=== PATIENT | female | born 1975 | race Caucasian/White ===

== ENCOUNTER 2017-03-30 10:10 | Emergency (ER) | payer SELFPAY ==
[2017-03-30] MEDS ORDERED: HYDROCODONE/ACETAMINOPHEN 5-325 MG TABLET PO ONE (10:43)
--- NOTE | 2017-03-30 10:48 | ER Document Report ---
ED General - General Chief Complaint: Arm Pain Stated Complaint: FALL WRIST PAIN Time Seen by Provider: 03/30/17 10:42 Mode of Arrival: Ambulatory Information source: Patient Notes: 41 yr old female presents with complaints of left wrist injury after slipping on ice. pt denies any other injuries. pt is being seen at meth[facility]one clinic. TRAVEL OUTSIDE OF THE [place] IN LAST 30 DAYS: No - HPI Onset: Just prior to arrival Onset/Duration: Sudden Quality of pain: Sharp Severity: Moderate Pain Level: 2 Associated symptoms: Body/muscle aches Exacerbated by: Movement Relieved by: Denies Similar symptoms previously: No Recently seen / treated by doctor: No - Related Data Allergies/Adverse Reactions: No Known Allergies Allergy (Unverified 03/30/17 10:12) Past Medical History - Social History Smoking Status: Current Every Day Smoker Cigarette use (# per day): Yes Chew tobacco use (# tins/day): No Smoking Education Provided: No Family History: Reviewed & Not Pertinent Review of Systems - Review of Systems Notes: REVIEW OF SYSTEMS: CONSTITUTIONAL : Denies fever, chills, or sweats. Denies recent illness. EENT: Denies eye, ear, throat, or mouth pain or symptoms. Denies nasal or sinus congestion or discharge. Denies throat, tongue, or mouth swelling or difficulty swallowing. CARDIOVASCULAR: Denies chest pain. Denies palpitations or racing or irregular heart beat. Denies ankle edema. RESPIRATORY: Denies cough, cold, or chest congestion. Denies shortness of breath, difficulty breathing, or wheezing. GASTROINTESTINAL: Denies abdominal pain or distention. Denies nausea, vomiting , or diarrhea. Denies blood in vomitus, stools, or per rectum. Denies black, tarry stools. Denies constipation. GENITOURINARY: Denies difficulty urinating, painful urination, burning, frequency, blood in urine, or discharge. FEMALE GENITOURINARY: Denies vaginal bleeding, heavy or abnormal periods, irregular periods. Denies vaginal discharge or odor. MUSCULOSKELETAL: Left wrist pain SKIN: Denies rash, lesions or sores. HEMATOLOGIC : Denies easy bruising or bleeding. LYMPHATIC: Denies swollen, enlarged glands. NEUROLOGICAL: Denies confusion or altered mental status. Denies passing out or loss of consciousness. Denies dizziness or lightheadedness. Denies headache. Denies weakness or paralysis or loss of use of either side. Denies problems with gait or speech. Denies sensory loss, numbness, or tingling. Denies seizures. PSYCHIATRIC: Denies anxiety or stress. Denies depression, suicidal ideation, or homicidal ideation. ALL OTHER SYSTEMS REVIEWED AND NEGATIVE. PHYSICAL EXAMINATION: GENERAL: Well-appearing, well-nourished and in no acute distress. HEAD: Atraumatic, normocephalic. EYES: Pupils equal round and reactive to light, extraocular movements intact, conjunctiva are normal. ENT: Nares patent, oropharynx clear without exudates. Moist mucous membranes. NECK: Normal range of motion, supple without lymphadenopathy LUNGS: Breath sounds clear to auscultation bilaterally and equal. No wheezes rales or rhonchi. HEART: Regular rate and rhythm without murmurs ABDOMEN: Soft, nontender, nondistended abdomen. No guarding, no rebound. No masses appreciated. Female : deferred Musculoskeletal: Deformity of left wrist limited range of motion secondary to pain pulses intact NEUROLOGICAL: Cranial nerves grossly intact. Normal speech, normal gait. Normal sensory, motor exams PSYCH: Normal mood, normal affect. SKIN: Warm, Dry, normal turgor, no rashes or lesions noted. Dictation was performed using [employer] voice recognition software Physical Exam - Vital signs Vitals: Temp Pulse Resp BP Pulse Ox 98.6 F 79 20 174/87 H 99 03/30/17 10:16 03/30/17 10:16 03/30/17 10:16 03/30/17 10:16 03/30/17 10:16 Course - Re-evaluation Re-evalutation: 03/30/17 10:48 Patient will be immediately sent for x-ray 03/30/17 11:37 Local block performed, patient was given 10 minutes and then fracture joint was reduced. Patient otherwise looks well. Will be given for the follow-up splint in place neuro exam normal After performing a Medical Screening Examination, I estimate there is LOW risk for INTRACRANIAL HEMORRHAGE, UNSTABLE SPINE FRACTURE, CENTRAL CORD SYNDROME, CAUDA EQUINA, THORACIC AORTIC DISSECTION, PNEUMOTHORAX, PERFORATED BOWEL, RUPTURED ABDOMINAL AORTIC ANEURYSM, ACUTE TENDON RUPTURE, COMPARTMENT SYNDROME, or OPEN FRACTURE, thus I consider the discharge disposition reasonable. Also, there is no evidence or peritonitis, sepsis, or toxicity. I have reevaluated this patient multiple times and no significant life threatening changes are noted. The patient and I have discussed the diagnosis and risks, and we agree with discharging home to follow-up with their primary doctor with the understanding that symptoms and presentations can change. We also discussed returning to the Emergency Department immediately if new or worsening symptoms occur. We have discussed the symptoms which are most concerning (e.g., bloody stool, fever, changing or worsening pain, vomiting) that necessitate immediate return. - Vital Signs Vital signs: Temp Pulse Resp BP Pulse Ox 98.6 F 79 20 174/87 H 99 03/30/17 10:16 03/30/17 10:16 03/30/17 10:16 03/30/17 10:16 03/30/17 10:16 - Diagnostic Test Radiology reviewed: Image reviewed, Reports reviewed - dorsal angulated fx distal radius Procedures - Immobilization Left Wrist Time completed: 11:35 Pre-Proc Neuro Vasc Exam: Normal Immobilizer type: Sugar tong Performed by: Provider assisted, PCT Post-Proc Neuro Vasc Exam: Normal Alignment checked and good: Yes - Joint Reduction/Fracture Care Left Wrist Time completed: 11:30 Consent obtained: Yes Conscious sedation: No - local block Pre-procedure NV exam: Yes Fracture: Closed Post-procedure NV exam: No Post-reduction x-ray: Joint reduced Reduction attempts: 1 Complications: No Notes: 03/30/17 11:36 large improvement in deformity, nuero exam and cap reil intact - Additional Procedures hematoma block Time performed: 11:21 - using 10 cc of sensorcaine without epi at the distal radius with complete releif no complications Discharge - Discharge Clinical Impression: Distal radius fracture, left Qualifiers: Encounter type: initial encounter Fracture type: closed Fracture morphology: unspecified fracture morphology Qualified Code(s): S52.502A - Unspecified fracture of the lower end of left radius, initial encounter for closed fracture Fracture of ulnar styloid Qualifiers: Encounter type: initial encounter Fracture type: closed Fracture alignment: displaced Laterality: left Qualified Code(s): S52.612A - Displaced fracture of left ulna styloid process, initial encounter for closed fracture Condition: Stable Disposition: HOME, SELF-CARE Instructions: Fractured Radius and Ulna ([facility]), Temporary Splint ([facility]), Splint Pending Casting ([facility]) Referrals: NIKUNJ HOROWITZ MD [ACTIVE STAFF] - Follow up tomorrow
[2017-03-30] MEDS ORDERED: BUPIVACAINE HCL 0.5 % INJ/PF 30 ML SDV INJ ONE (10:59)
--- NOTE | 2017-03-30 11:24 | RADIOLOGY REPORT (SQ) ---
EXAM DESCRIPTION: WRIST LEFT 3 VIEWS COMPLETED DATE/TIME: 03/30/2017 11:03 am REASON FOR STUDY: fall deformity COMPARISON: None. NUMBER OF VIEWS: Three views. TECHNIQUE: AP, lateral, and oblique radiographic images acquired of the left wrist. LIMITATIONS: None. FINDINGS: MINERALIZATION: Normal. BONES: Comminuted distal radius intraarticular fracture with dorsal angulation of the articular surf ada. Acute distal ulnar styloid avulsion. SOFT TISSUES: Diffuse soft tissue swelling. No foreign body. OTHER: No other significant finding. IMPRESSION: Acute distal radius comminuted fracture Acute ulnar styloid fracture TECHNICAL DOCUMENTATION: JOB ID: [id number] [employer]- All Rights Reserved
[2017-03-30 12:11] VITALS: BP 160/94
== END 2017-03-30 12:01 | disposition home or self-care (01) ==
LOC: ER 10:10
PROC: 0PSJXZZ Reposition Left Radius, External Approach (ICD-10-PCS; principal; 2017-03-30)
PROC: 0PSLXZZ Reposition Left Ulna, External Approach (ICD-10-PCS; 2017-03-30)
DX: S52.502A Unspecified fracture of the lower end of left radius, initial encounter for closed fracture (principal); S52.612A Displaced fracture of left ulna styloid process, initial encounter for closed fracture; M79.602 Pain in left arm; M25.532 Pain in left wrist; F17.210 Nicotine dependence, cigarettes, uncomplicated; W19.XXXA Unspecified fall, initial encounter
CPT/HCPCS: 99283